=== PATIENT | female | born 1995 | race American Indian/Alaskan Native ===

== ENCOUNTER 2019-09-10 16:24 | Emergency (ER) | payer SELFPAY ==
--- NOTE | 2019-09-10 19:45 | Event Note ---
ED Screening Note ED Screening Note: sore throat that began two days ago pain with swallowing she is able to tolerate PO intake no fever no sick contacts no PMHx no allergies to meds LNMP: 08/18/19 no recent abx
--- NOTE | 2019-09-10 19:50 | Emergency Department Report ---
ED ENT HPI - General Chief complaint: Sore Throat Stated complaint: SORE THROAT Time Seen by Provider: 09/10/19 19:41 Source: patient Mode of arrival: Ambulatory Limitations: No Limitations - History of Present Illness Initial comments: pt is a 23 yo female who presents to the ED with c/o a sore throat that began two days ago. she has associated pain with swallowing. she is able to tolerate PO intake and her secretions. she denies any fever, vomiting, cough. she denies any sick contacts. no PMHx. no allergies to meds. LNMP: 08/18/19. no recent abx. - Related Data Previous Rx's Medication Instructions Recorded Last Taken Type Amoxicillin [Amoxicillin TAB] 875 mg PO BID 10 Days #20 tablet 09/10/19 Unknown Rx Allergies Allergy/AdvReac Type Severity Reaction Status Date / Time No Known Allergies Allergy Verified 09/10/19 17:04 ED Dental HPI - General Chief complaint: Sore Throat Stated complaint: SORE THROAT Time Seen by Provider: 09/10/19 19:41 Source: patient Mode of arrival: Ambulatory Limitations: No Limitations - Related Data Previous Rx's Medication Instructions Recorded Last Taken Type Amoxicillin [Amoxicillin TAB] 875 mg PO BID 10 Days #20 tablet 09/10/19 Unknown Rx Allergies Allergy/AdvReac Type Severity Reaction Status Date / Time No Known Allergies Allergy Verified 09/10/19 17:04 ED Review of Systems ROS: Stated complaint: SORE THROAT Other details as noted in HPI Comment: All other systems reviewed and negative ED Past Medical Hx - Past Medical History Previous Medical History?: No - Surgical History Past Surgical History?: No - Medications Home Medications: Home Medications Medication Instructions Recorded Confirmed Last Taken Type Amoxicillin [Amoxicillin TAB] 875 mg PO BID 10 Days #20 tablet 09/10/19 Unknown Rx ED Physical Exam - General Limitations: No Limitations General appearance: alert, in no apparent distress - Head Head exam: Present: atraumatic, normocephalic - Eye Eye exam: Present: normal appearance - ENT ENT exam: Present: mucous membranes moist, TM's normal bilaterally, normal external ear exam, other (erythema of the tonsils with tonsillar exudates present on the right tonsil, uvula is midline, no uvula edema, no deviation of the uvula ) - Respiratory Respiratory exam: Present: normal lung sounds bilaterally. Absent: respiratory distress, wheezes, rales, rhonchi, stridor, chest wall tenderness, accessory muscle use, decreased breath sounds, prolonged expiratory - Cardiovascular Cardiovascular Exam: Present: regular rate, normal rhythm, normal heart sounds. Absent: systolic murmur, diastolic murmur, rubs, gallop - Neurological Exam Neurological exam: Present: alert, oriented X3 - Psychiatric Psychiatric exam: Present: normal affect, normal mood - Skin Skin exam: Present: warm, dry, intact ED Course Vital Signs 09/10/19 19:51 Temperature 98.9 F Pulse Rate 86 Respiratory 18 Rate Blood Pressure 125/84 O2 Sat by Pulse 98 Oximetry ED Medical Decision Making - Medical Decision Making pt is a 23 yo female who presents to the ED with c/o a sore throat that began t wo days ago. she has associated pain with swallowing. she is able to tolerate PO intake and her secretions. she denies any fever, vomiting, cough. she denies any sick contacts. no PMHx. no allergies to meds. LNMP: 08/18/19. no recent abx. vitals are normal. on exam: erythema of the tonsils with tonsillar exudates present on the right tonsil, uvula is midline, no uvula edema, no deviation of the uvula. examination consistent with tonsillitis. no signs of peritonsillar abscess at this time. pt given prescription for amoxcillin. advised pt she needed to be reevaluated in two days. pt given strict return precautions including but not limited to worsening pain, difficulty breathing, throat swelling, voice changes, unable to tolerate secretions, etc. please take medication as prescribed. may take tylenol or ibuprofen for discomfort. may do warm salt water gargles, use throat spray, cepacol over the counter. increase your fluid intake. follow up with a primary care doctor in the next 2-3 days for reexamination. return to the emergency room for any new or worsening symptoms immediately. - Differential Diagnosis strep pharyngitis, tonsillitis, peritonsillar abscess, sialodenitits Critical care attestation.: If time is entered above; I have spent that time in minutes in the direct care of this critically ill patient, excluding procedure time. ED Disposition Clinical Impression: Tonsillitis Disposition: TO HOME OR SELFCARE Is pt being admited?: No Does the pt Need Aspirin: No Condition: Stable Instructions: Tonsillitis (ED) Additional Instructions: please take medication as prescribed. may take tylenol or ibuprofen for discomfort. may do warm salt water gargles, use throat spray, cepacol over the counter. increase your fluid intake. follow up with a primary care doctor in the next 2-3 days for reexamination. return to the emergency room for any new or worsening symptoms immediately. Prescriptions: Amoxicillin [Amoxicillin TAB] 875 mg PO BID 10 Days #20 tablet Referrals: OMERO CRAFT MD [Staff Physician] - 2-[address] [facility] [Outside] - 2-3 Days [facility] [Outside] - 2-3 Days Time of Disposition: 19:48 Print Language: RWANDAN
[2019-09-10 20:07] VITALS: BP 125/84
== END 2019-09-10 20:10 | disposition home or self-care (01) ==
LOC: ED 16:24
DX: J03.90 Acute tonsillitis, unspecified (principal)